=== PATIENT | female | born 1975 | race Caucasian/White ===

== ENCOUNTER 2016-08-01 06:17 | Observation (INO) | payer MEDICAID ==
[2016-08-01] VITALS (14 sets, daily range): BP systolic 119–147; BP diastolic 70–94
[~2016-08-01] VITALS: Ht 160 cm; Wt 100.7 kg
[~2016-08-01 06:17] MED LIST: ACETAMINOPHEN &1 TA1 PO; FLEXERIL10 M1 PO; IBUPROFEN 600M600 MG PO; KEFLEX 500MG.500 MG PO; LORTAB 500 MG-11 TAB PO; MAGNESIUM1.75 GM/30 PO; MASON NATURAL2000 IU PO; MEDROL 4MG. DOSE4 MG PO; MOTRIN 600MG.600 MG PO; PREDNISONE 10MG10 MG PO; PREDNISONE 20MG20 MG PO; TORADOL10 MG PO; ULTRACET 325 MG1 TAB PO; ZOFRAN 8MG TABLE8 MG PO
--- NOTE | 2016-08-01 08:55 | Operative Note ---
Procedure/Operative Record Date of Procedure: 08/01/16 Referring physician: Dr. Rachel Pre-op diagnosis: 1. Dysfunctional uterine bleeding. 2. Leiomyomata uteri. 3. Symptomatic pelvic relaxation. Post-op diagnosis: 1. Dysfunctional uterine bleeding. 2. Leiomyomata uteri. 3. Symptomatic pelvic relaxation. Procedure performed: Total vaginal hysterectomy, LEFT salpingo-oophorectomy, enterocele repair. Surgeon: Jorje Hernandez [employer] Operations Manager(s): Dr. Mckeon Anesthesia: Gen.PHIL Indications: 1. Dysfunctional uterine bleeding. 2. Leiomyomata uteri. 3. Symptomatic pelvic relaxation. Description of procedure: After the patient was prepped and draped in usual fashion and general anesthesia was administered, a weighted speculum was placed within the posterior fourchette of the vagina, and the cervix was grasped with a double-tooth tenaculum, and retracted to the introitus. The cervix was circumcised with a knife, and the vaginal mucosa was sharply and bluntly dissected free. A posterior colpotomy incision was made with David scissors, and the long lip of the weighted speculum was placed within the posterior peritoneum. The uterosacral ligaments on either side were Merari clamped, cut, and Merari sutured with #1 Vicryl, as were the cardinal ligaments and uterine vessels. The anterior peritoneum was entered with David scissors, and a long right angle retractor was placed within it. The bulbous uterus was flipped anteriorly, and the ovarian pedicles were crossclamped and cut, thus removing the uterine specimen. These pedicles were Merari sutured, and then free tied with #1 Vicryl. The LEFT adnexa was grasped with a Blaze clamp, and the infundibulopelvic ligament was crossclamped and cut, thus removing the RIGHT adnexa. This pedicle was Merari sutured, and then free tied with #1 Vicryl. On the RIGHT side, the adnexa was retracted, and adherent to the pelvic sidewall. After several attempts to grasp it, it was elected to leave it in situ. The posterior vaginal cuff was run and locked with #1 Vicryl, to include the uterosacral ligament pedicles for vaginal support, in a Briscoe fashion, to reduce the enterocele. The anterior peritoneum was grasped with a long Allis clamp, and closed with a running pursestring suture of 0 Vicryl, and pulled tight. A number 10 flat Hank-Neely drain was LEFT in the peritoneum, which was sutured around it. The vaginal cuff was closed with an anteroposterior running locked suture of #1 Vicryl. A grenade was placed at the end of the Hank-Neely drain, with minimal drainage initially. The urine was clear in the Schaffer catheter. Sponge and needle counts correct. The estimated blood loss was 300 mL. The patient tolerated the procedure well, and was taken to PACU in excellent condition. EBL (ml): 300 Complications: None Specimens: Uterus, LEFT adnexa. at 0854
[2016-08-01 09:26] LABS: URINE BILIRUBIN - DIPSTICK NEGATIVE (NEG); URINE BLOOD NEGATIVE (NEG)
--- NOTE | 2016-08-01 09:41 | PHARMACY CLINIC NOTE ---
Patient Demographics Patient Demographics Admission date: 08/01/16 Date: 08/01/16 Time: 0939 Allergies Coded Allergies: No Known Allergies (08/01/16) HEIGHT- FT: 5 IN: 3.00 K.699 VTE General Information Disclaimer The following section includes nursing documentation that has been pulled in for pharmacy review. Clinical trial participant? No VTE prophylaxis [id number] VTE prophylaxis ordered? Yes Type of prophylaxis/treatment: Felecia NEWTON (POST OP) at 0940
[2016-08-01 10:47] LABS: HEMOGLOBIN 10.9 g/dL (12.2-16.2)
--- NOTE | 2016-08-01 11:42 | ACUTE CARE PROGRESS NOTE (QUA) ---
Progress Notes Subjective Date 08/01/16 Time 1141 Assessment/Plan This inpt stay is expected to cross 2 MNs from start of care No Comments: This is day of surgery. The patient is afebrile. Vital signs stable. Surgery is been explained to the patient. PATSY is draining minimally at this point. Urine output is good. at 1142
[2016-08-02 01:15] VITALS: BP 114/68
[2016-08-02 04:40] VITALS: BP 109/65
--- NOTE | 2016-08-02 06:13 | ACUTE CARE PROGRESS NOTE (QUA) ---
Progress Notes Subjective Date 08/02/16 Time 0611 Note This is postop day number 1. The patient is afebrile. Vital signs stable. Abdomen soft. Urine output good (Schaffer has been removed). PATSY draining moderately. Plan is to possibly remove the PATSY drain later today. We'll advance diet. Assessment/Plan This inpt stay is expected to cross 2 MNs from start of care No at 0612
[2016-08-02 08:26] VITALS: BP 118/65
--- NOTE | 2016-08-02 11:00 | ACUTE CARE PROGRESS NOTE (QUA) ---
Progress Notes Subjective Date 08/02/16 Time 1059 Note The patient is doing well. She is eating and ambulating and urinating well. Her PATSY drain has been draining minimally, and has now been removed without difficulty. Plan is to observe the patient at this time. Assessment/Plan This inpt stay is expected to cross 2 MNs from start of care No at 1100
[2016-08-02 16:00] VITALS: BP 133/73
--- NOTE | 2016-08-02 16:04 | ACUTE CARE PROGRESS NOTE (QUA) ---
Progress Notes Subjective Date 08/02/16 Time 1603 Note Patient is afebrile. Vital signs stable. Abdomen soft. Minimal bleeding. Hemoglobin 10.9 g, but clinically stable. She will be discharged this evening. Assessment/Plan This inpt stay is expected to cross 2 MNs from start of care No at 1603
--- NOTE | 2016-08-02 16:06 | DISCHARGE SUMMARY STANDARD ---
Discharge Summary Date of admission: 08/01/16 Date of discharge: 08/02/16 Patient condition: Stable Discharge diagnosis (es): 1. Dysfunctional uterine bleeding. 2. Leiomyomata uteri. 3. Symptomatic pelvic relaxation. 4. Anemia. Hospital course: This 41-year-old white female was admitted for definitive treatment of the above diagnoses. On the date of admission, she was taken to the operating room, where she underwent a total vaginal hysterectomy LEFT salpingo-oophorectomy and enterocele repair, without complications. Her RIGHT adnexa remains in situ. She received Delestrogen 30 mg IM in PACU on that date. Postoperatively, the patient has done well. She is eating and ambulating and passing flatus. Her abdomen is soft. She has minimal vaginal bleeding. Her hemoglobin is 10.9 g, but she is clinically stable. She is not a smoker. She is discharged home on the first postoperative day on Percocet 7.5/325 (number 30), 1 by mouth every 6 hours when necessary pain. She is given appropriate instructions as to diet and exercise, and she is to return to the office in 2 weeks for follow-up. at 7122
[2016-08-02] MEDS ORDERED: PERCOCET 325 MG1 TA4 PO (16:07)
[2016-08-02 17:45] VITALS: BP 133/73
== END 2016-08-02 17:45 | disposition home or self-care (01) ==
LOC: SDC 06:17 → OB 06:21 → SDC 07:30 → OB 10:18
PROVIDERS: Obstetrics & Gynecology
PROC: 0UT97ZZ Resection of Uterus, Via Natural or Artificial Opening (ICD-10-PCS; principal; 2016-08-01 07:30)
PROC: 0UT67ZZ Resection of Left Fallopian Tube, Via Natural or Artificial Opening (ICD-10-PCS; principal; 2016-08-01 07:30)
PROC: 0UT17ZZ Resection of Left Ovary, Via Natural or Artificial Opening (ICD-10-PCS; principal; 2016-08-01 07:30)
PROC: 0UTC7ZZ Resection of Cervix, Via Natural or Artificial Opening (ICD-10-PCS; principal; 2016-08-01 07:30)
DX: N93.8 Other specified abnormal uterine and vaginal bleeding (principal); D21.9 Benign neoplasm of connective and other soft tissue, unspecified; N81.5 Vaginal enterocele
CPT/HCPCS: J0131; J2405